=== PATIENT | male | born 1980 | race Caucasian/White ===

== ENCOUNTER 2018-06-11 15:55 | Emergency (ER) | payer SELFPAY ==
[~2018-06-11] VITALS: Ht 170.2 cm; Wt 84.1 kg
[2018-06-11 16:03] VITALS: BP 200/102; Ht 170.2 cm; Wt 84.1 kg
[2018-06-12] MEDS ORDERED: MACROBID100 MG PO (17:38)
== END 2018-06-11 19:00 | disposition left against medical advice (07) ==
LOC: D.ER 15:55
DX: R20.8 Other disturbances of skin sensation (principal)

== ENCOUNTER 2018-06-12 13:52 | Emergency (ER) | payer SELFPAY ==
[~2018-06-12] VITALS: Ht 170.2 cm; Wt 84.1 kg
[2018-06-12 14:22] VITALS: BP 203/142; Ht 170.2 cm; Wt 84.1 kg
[2018-06-12] MEDS ORDERED: MACROBID100 MG PO (17:38)
== END 2018-06-13 11:41 | disposition left against medical advice (07) ==
LOC: D.ER 13:52
DX: A64 Unspecified sexually transmitted disease (principal)

== ENCOUNTER 2018-06-12 16:22 | Emergency (ER) | payer SELFPAY ==
[~2018-06-12] VITALS: Ht 170.2 cm; Wt 84.1 kg
[2018-06-12 17:30] LABS: APPEARANCE CLOUDY (CLEAR); BILIRUBIN NEGATIVE (NEGATIVE); COLOR YELLOW (YELLOW); GLUCOSE NEGATIVE (NEGATIVE); KETONE NEGATIVE (NEGATIVE); NITRITE POSITIVE (NEGATIVE); PROTEIN TRACE mg/dL (NEGATIVE); SPECIFIC GRAVITY 1.015 (1.005-1.020); UROBILINOGEN NORMAL (NORMAL)
[2018-06-12 17:31] LABS: BACTERIA MANY /hpf (NONE SEEN); RED CELLS - URINE 0-5 /hpf (0-5)
[2018-06-12] MEDS ORDERED: MACROBID100 MG PO (17:38)
== END 2018-06-12 18:54 | disposition home or self-care (01) ==
LOC: D.ER 16:22
PROVIDERS: Family Medicine
DX: A64 Unspecified sexually transmitted disease (principal); N39.0 Urinary tract infection, site not specified

== ENCOUNTER 2019-08-03 16:55 | Emergency (ER) | payer SELFPAY ==
[~2019-08-03] VITALS: Ht 170.2 cm; Wt 84.1 kg
[~2019-08-03 16:55] MED LIST: MACROBID100 MG PO
[2019-08-03 16:59] VITALS: BP 128/55; Ht 170.2 cm; Wt 84.1 kg
== END 2019-08-03 17:04 | disposition left against medical advice (07) ==
LOC: D.ER 16:55
DX: F10.239 Alcohol dependence with withdrawal, unspecified (principal); Z53.29 Procedure and treatment not carried out because of patient's decision for other reasons; Z53.20 Procedure and treatment not carried out because of patient's decision for unspecified reasons; I10 Essential (primary) hypertension; Z72.0 Tobacco use